=== PATIENT | female | born 1935 | race Caucasian/White ===

== ENCOUNTER → 2016-03-18 | Outpatient (CLI) | payer MEDICARE, OTHER ==
[~2016-03-18] MED LIST: DITROPAN 5MG TAB5 MG PO; LIPITOR 10MG10 MG PO; MVI; OSCAL 500MG/VI500 MG PO; QUESTRAN LIGH4 G/PKT PO; SYNTHROID0.075 MG/T PO
== END ==
LOC: MC.RAD 07:17
DX: Z12.31 Encounter for screening mammogram for malignant neoplasm of breast (principal)

== ENCOUNTER → 2017-12-11 | Outpatient (CLI) | payer MEDICARE, OTHER | LOC: COL.RAD 14:57 | DX: M25.762 Osteophyte, left knee (principal); M62.562 Muscle wasting and atrophy, not elsewhere classified, left lower leg ==

== ENCOUNTER → 2018-06-14 | Outpatient (CLI) | payer MEDICARE, OTHER | LOC: MC.RAD 14:30 | DX: Z12.31 Encounter for screening mammogram for malignant neoplasm of breast (principal); N64.89 Other specified disorders of breast ==

== ENCOUNTER → 2018-06-16 | Outpatient (CLI) | payer MEDICARE, OTHER | LOC: MC.RAD 07:00 | DX: N64.89 Other specified disorders of breast (principal) ==

== ENCOUNTER → 2018-12-13 | Outpatient (CLI) | payer MEDICARE, OTHER | LOC: MC.RAD 12-06 07:30 | DX: N64.89 Other specified disorders of breast (principal); R92.8 Other abnormal and inconclusive findings on diagnostic imaging of breast | CPT/HCPCS: G0279 ==

== ENCOUNTER 2020-06-22 21:03 | Emergency (ER) | payer MEDICARE, OTHER ==
[~2020-06-22] VITALS: Ht 170.2 cm; Wt 86.4 kg
[2020-06-22 21:32] LABS: BASO % 0.5 % (0.0-2.0); EOS % 0.2 % (0-4.0); GRAN # 6.9 (1.4-6.5); GRAN % 80.5 % (42.2-75.2); HEMATOCRIT 39.2 % (37.0-47.0); HEMOGLOBIN 13.2 g/dl (12.5-16.0); LYMPH # 1.2 (1.2-3.4); LYMPH % 13.8 % (20.0-51.0); MEAN CELL VOLUME 94 fl (80.0-100.0); MEAN CORPUSCULAR HEMOGLOBIN 32 pg (27.0-31.0); MEAN CORPUSCULAR HGB CONC 34 g/dl (33.0-37.0); MEAN PLATELET VOLUME 10.9 fl (7.4-10.4); MONO # 0.3 (0.1-0.6); MONO % 3.6 % (1.7-9.3); PLATELET COUNT 223 K/mm3 (130-400); RED BLOOD COUNT 4.18 M/mm3 (4.10-5.30); REDCELL DISTRIBUTION WIDTH-CV 12.8 % (11.5-14.5)
[2020-06-22] MEDS ORDERED: GLUCOTROL 5M5 MG/TAB PO (21:43)
[2020-06-22] MEDS ORDERED: COLESTID 1GM1 G PO (21:44)
[2020-06-22] MEDS ORDERED: TOPROL XL100 MG PO (21:45)
[2020-06-22 21:49] LABS: ALANINE AMINOTRANSFERASE 24 U/L (4-34); ALBUMIN 4.3 gm/dL (3.5-5.0); ALKALINE PHOSPHATASE 119 U/L (50-136); ANION GAP 11 mmol/L (7-16); AST,SGOT 25 U/L (15-37); BILIRUBIN,TOTAL 1.3 mg/dL (0.0-1.0); BLOOD UREA NITROGEN 26 mg/dL (7-17); CALCIUM 9.9 mg/dL (8.4-10.2); CARBON DIOXIDE 22 mmol/L (22-30); CHLORIDE 104 mmol/L (98-107); CREATININE, serum 1.58 (0.52-1.25); GLUCOSE 208 mg/dL (74-106); LIPASE 121 U/L (23-300); POTASSIUM 4.3 mmol/L (3.4-5.0); SODIUM 137 mmol/L (137-145); TOTAL PROTEIN 8.1 gm/dL (6.4-8.2)
[2020-06-22 22:03] LABS: TROPONIN-I < 0.012 ng/mL (0.000-0.035)
[2020-06-22 23:00] VITALS: BP 152/86; PULSE 90; TEMP 97.4
== END 2020-06-22 23:00 | disposition short-term general hospital (02) ==
LOC: COL.ER 21:03
PROVIDERS: Emergency Medicine
DX: G93.89 Other specified disorders of brain (principal); R79.89 Other specified abnormal findings of blood chemistry; I10 Essential (primary) hypertension; E11.9 Type 2 diabetes mellitus without complications; E03.9 Hypothyroidism, unspecified; E78.5 Hyperlipidemia, unspecified; Z88.8 Allergy status to other drugs, medicaments and biological substances; Z79.84 Long term (current) use of oral hypoglycemic drugs; Z79.890 Hormone replacement therapy; Z79.899 Other long term (current) drug therapy
CPT/HCPCS: J1100; J1953; J2405